=== PATIENT | male | born 2000 | race Caucasian/White ===

== ENCOUNTER 2020-08-09 20:42 | Emergency (ER) | payer BC ==
[~2020-08-09] VITALS: Ht 175.3 cm; Wt 59.0 kg
[2020-08-09] MEDS ORDERED: MEDROLDOSEPACK PO (23:16)
[2020-08-09 23:26] VITALS: BP 132/72
== END 2020-08-09 23:27 | disposition home or self-care (01) ==
LOC: ER 20:42
DX: M54.42 Lumbago with sciatica, left side (principal)